=== PATIENT | female | born 1975 | race Caucasian/White ===

== ENCOUNTER 2016-11-16 17:34 | Inpatient (IN) | payer BC ==
[~2016-11-16] VITALS: Ht 172.7 cm; Wt 137.5 kg
[2016-11-16] MEDS ORDERED: OMNIPAQUE 350 MG/ML, 100ML BOTTLE ONE (18:07)
[2016-11-16] MEDS ORDERED: SODIUM CHLORIDE 0.9% 1,000 ML IV ONE (18:07)
[2016-11-16] MEDS ORDERED: ONDANSETRON 2MG/ML, 2ML ONE (18:15)
[2016-11-16] MEDS ORDERED: HYDROmorphone 1 MG/ML, 1ML ONE ×2 (18:15→20:30)
[2016-11-16 18:26] LABS: PATH.CAST-FLAG NOT PRESENT; SPERM-FLAG NOT PRESENT; SRC-FLAG NOT PRESENT; XTAL-FLAG NOT PRESENT; YLC-FLAG NOT PRESENT
[2016-11-16] MEDS ORDERED: SODIUM CHLORIDE 0.9% 1,000ML IVBOLUS ONE (18:30)
[2016-11-16] MEDS ORDERED: SODIUM CHLORIDE FLUSH 10ML SYR IVF ONE (18:30)
[2016-11-16] MEDS ORDERED: ONDANSETRON 2MG/ML, 2ML IVPush ONE (18:30)
[2016-11-16] MEDS ORDERED: HYDROmorphone 1 MG/ML, 1ML IVPush PRN (18:30)
[2016-11-16 18:34] LABS: HEMOGLOBIN 13.7 g/dL (11.7-16.4)
[2016-11-16 18:46] LABS: ASPARTATE AMINO TRANSFERASE 15 U/L (15-37); BLOOD UREA NITROGEN 7 mg/dL (7-18)
[2016-11-16] MEDS ORDERED: AMPICILLIN/SULBACTAM 3 GM in SODIUM CHLORIDE 0.9% 100 ML IV ONE (20:00)
[2016-11-16] MEDS ORDERED: METRONIDAZOLE PMX 500MG/100ML 100 ML IV ONE (20:00)
[2016-11-16] MEDS ORDERED: METH500T7 PO (20:22)
[2016-11-16] MEDS ORDERED: CIPR500T87 PO (20:25)
[2016-11-16] MEDS ORDERED: IBUP1TAB PO (20:25)
[2016-11-16] MEDS ORDERED: METR500T PO (20:25)
[2016-11-16] MEDS ORDERED: METH750T2 PO (20:25)
[2016-11-16] MEDS ORDERED: METRONIDAZOLE PMX 500MG/100ML 100 ML ONE (20:30)
[2016-11-16] MEDS: HEPARIN 5,000 UNITS/ML, 1ML SQ SCH (21:00)
[2016-11-16] MEDS: AMPICILLIN/SULBACTAM 3 GM in SODIUM CHLORIDE 0.9% 100 ML IV SCH (21:00)
[2016-11-16] MEDS ORDERED: ACETAMINOPHEN 325 MG TABLET PO PRN (21:00)
[2016-11-16] MEDS: METHOCARBAMOL 750 MG TABLET PO SCH (21:00)
[2016-11-16] MEDS: METRONIDAZOLE PMX 500MG/100ML 100 ML IV SCH (21:00)
[2016-11-16 21:18] VITALS: BP 135/81
[2016-11-16] MEDS: HYDROmorphone 2 MG/ML, 1ML IV PRN (21:50)
[2016-11-16] MEDS: SODIUM CHLORIDE 0.9% 1,000 ML IV SCH (23:00)
[2016-11-17 02:28] VITALS: BP 131/83
[2016-11-17] MEDS: AMPICILLIN/SULBACTAM 3 GM in SODIUM CHLORIDE 0.9% 100 ML IV SCH ×2 (03:45→10:20)
[2016-11-17] MEDS: HEPARIN 5,000 UNITS/ML, 1ML SQ SCH (05:00)
[2016-11-17] MEDS: METRONIDAZOLE PMX 500MG/100ML 100 ML IV SCH ×3 (05:55→20:47)
[2016-11-17 06:02] LABS: BLOOD UREA NITROGEN 5 mg/dL (7-18)
[2016-11-17 06:06] LABS: ASPARTATE AMINO TRANSFERASE 94 U/L (15-37)
[2016-11-17 06:09] LABS: HEMOGLOBIN 11.8 g/dL (11.7-16.4)
[2016-11-17] MEDS: HYDROmorphone 2 MG/ML, 1ML IV PRN ×3 (06:32→20:46)
[2016-11-17 08:01] VITALS: BP 103/69
[2016-11-17] MEDS: METHOCARBAMOL 750 MG TABLET PO SCH ×2 (09:20→20:45)
[2016-11-17] MEDS: ONDANSETRON 2MG/ML, 2ML IVP PRN (10:20)
[2016-11-17] MEDS: SODIUM CHLORIDE 0.9% 1,000 ML IV SCH (10:20)
[2016-11-17] MEDS ORDERED: PROCHLORPERAZINE 5 MG/ML, 2ML IV PRN (12:00)
[2016-11-17] MEDS: ENOXAPARIN 40 MG/0.4 ML SQ SCH (12:48)
[2016-11-17] MEDS: CEFTRIAXONE PMX 2GM/50ML 50 ML IV SCH (12:48)
[2016-11-17] MEDS: D5%-0.45NACL+KCL 20MEQ 1,000 ML IV SCH ×2 (14:39→20:49)
[2016-11-17] MEDS: IBUPROFEN 200 MG TABLET PO PRN (16:56)
[2016-11-17 19:49] VITALS: BP 126/78
[2016-11-18 01:18] VITALS: BP 120/72
[2016-11-18] MEDS: HYDROmorphone 2 MG/ML, 1ML IV PRN ×4 (04:15→21:01)
[2016-11-18] MEDS: D5%-0.45NACL+KCL 20MEQ 1,000 ML IV SCH ×2 (05:43→15:59)
[2016-11-18] MEDS: METRONIDAZOLE PMX 500MG/100ML 100 ML IV SCH ×3 (05:43→21:00)
[2016-11-18 05:54] LABS: HEMOGLOBIN 11.3 g/dL (11.7-16.4)
[2016-11-18 06:09] LABS: ASPARTATE AMINO TRANSFERASE 58 U/L (15-37); BLOOD UREA NITROGEN 4 mg/dL (7-18)
[2016-11-18 07:51] VITALS: BP 106/70
[2016-11-18] MEDS: METHOCARBAMOL 750 MG TABLET PO SCH ×2 (08:19→21:00)
[2016-11-18] MEDS: IBUPROFEN 200 MG TABLET PO PRN (10:26)
[2016-11-18] MEDS: ENOXAPARIN 40 MG/0.4 ML SQ SCH (12:20)
[2016-11-18] MEDS: CEFTRIAXONE PMX 2GM/50ML 50 ML IV SCH (12:20)
[2016-11-18 13:19] VITALS: BP 132/82
[2016-11-18 19:32] VITALS: BP 112/74
[2016-11-18] MEDS ORDERED: HYDROmorphone 1 MG/ML, 1ML ONE ×2 (20:52→20:53)
[2016-11-18] MEDS: ONDANSETRON 2MG/ML, 2ML IVP PRN (21:14)
[2016-11-19] MEDS ORDERED: HYDROmorphone 1 MG/ML, 1ML ONE (00:50)
[2016-11-19] MEDS: D5%-0.45NACL+KCL 20MEQ 1,000 ML IV SCH ×2 (00:51→11:43)
[2016-11-19] MEDS: HYDROmorphone 2 MG/ML, 1ML IV PRN ×2 (00:51→08:32)
[2016-11-19 01:40] VITALS: BP 130/77
[2016-11-19] MEDS: METRONIDAZOLE PMX 500MG/100ML 100 ML IV SCH (05:11)
[2016-11-19 07:13] VITALS: BP 106/69
[2016-11-19] MEDS: METHOCARBAMOL 750 MG TABLET PO SCH (08:32)
[2016-11-19] MEDS ORDERED: PANTOPRAZOLE 40 MG IV IVPush ONE (10:30)
[2016-11-19] MEDS ORDERED: MAALOX/HYOSCYAMINE/LIDOCAINE 45 ML BOTTLE PO ONE (10:30)
[2016-11-19] MEDS ORDERED: OMEP-110 PO (11:43)
[2016-11-19] MEDS ORDERED: CIPR500T87 PO (11:43)
[2016-11-19] MEDS ORDERED: METR500T PO (11:43)
== END 2016-11-19 12:13 | disposition home or self-care (01) | DRG 392 ==
LOC: ED 20:33 → EDIP 20:40 → 3NE 21:45
PROVIDERS: ADMIT Internal Medicine; ATTEND Internal Medicine
PROC: 0T9B70Z Drainage of Bladder with Drainage Device, Via Natural or Artificial Opening (ICD-10-PCS; principal; 2016-11-16)
DX: K57.30 Diverticulosis of large intestine without perforation or abscess without bleeding (principal); Z68.42 Body mass index [BMI] 45.0-49.9, adult; E87.1 Hypo-osmolality and hyponatremia; E44.1 Mild protein-calorie malnutrition; E66.01 Morbid (severe) obesity due to excess calories; K21.9 Gastro-esophageal reflux disease without esophagitis; D64.9 Anemia, unspecified; Z82.61 Family history of arthritis; Z86.19 Personal history of other infectious and parasitic diseases; Z80.8 Family history of malignant neoplasm of other organs or systems; Z90.49 Acquired absence of other specified parts of digestive tract; Z82.3 Family history of stroke; Z84.1 Family history of disorders of kidney and ureter; Z88.5 Allergy status to narcotic agent
CPT/HCPCS: 36415; 74177; 80053; 81001; 83690; 84484; 84703; 85025; 87086; 87106; 87324; 93005; 96361; 96365; 96375; J0295; J0696; J1170; J2405; Q9967; C9113; J3480; J7030

== ENCOUNTER 2016-12-04 10:08 | Emergency (ER) | payer BC ==
[~2016-12-04] VITALS: Ht 172.7 cm; Wt 133.0 kg
[~2016-12-04 10:08] MED LIST: CIPR500T87 PO; IBUP1TAB PO; METH500T7 PO; METH750T2 PO; METR500T PO; OMEP-110 PO
[2016-12-04 10:13] VITALS: BP 83/54
[2016-12-04] MEDS ORDERED: SODIUM CHLORIDE 0.9% 1,000 ML IV ONE (11:03)
[2016-12-04] MEDS ORDERED: ONDANSETRON 2MG/ML, 2ML IVPush ONE (11:30)
[2016-12-04] MEDS ORDERED: SODIUM CHLORIDE FLUSH 10ML SYR IVF ONE (11:30)
[2016-12-04] MEDS ORDERED: SODIUM CHLORIDE 0.9% 1,000ML IVBOLUS ONE (11:30)
[2016-12-04] MEDS ORDERED: HYDROmorphone 1 MG/ML, 1ML IVPush PRN (11:30)
[2016-12-04 11:31] LABS: HEMOGLOBIN 14.6 g/dL (11.7-16.4)
[2016-12-04] MEDS ORDERED: ONDANSETRON 2MG/ML, 2ML ONE (11:51)
[2016-12-04] MEDS ORDERED: HYDROmorphone 1 MG/ML, 1ML ONE (11:51)
[2016-12-04 11:57] LABS: BLOOD UREA NITROGEN 14 mg/dL (7-18)
[2016-12-04 12:06] LABS: ASPARTATE AMINO TRANSFERASE 17 U/L (15-37)
== END 2016-12-04 14:29 | disposition home or self-care (01) ==
LOC: ED 14:23
DX: K57.92 Diverticulitis of intestine, part unspecified, without perforation or abscess without bleeding (principal); M19.90 Unspecified osteoarthritis, unspecified site; M06.9 Rheumatoid arthritis, unspecified; Z88.6 Allergy status to analgesic agent; Z88.5 Allergy status to narcotic agent
CPT/HCPCS: 36415; 80053; 81003; 83605; 83690; 84703; 85025; 96361; 96374; 99285; J2405; J7030

== ENCOUNTER 2020-05-12 11:53 | Emergency (ER) | payer BC ==
[~2020-05-12] VITALS: Ht 172.7 cm; Wt 143.5 kg
[2020-05-12 14:24] LABS: BASOPHILS # (AUTO) 0.04 x10^3/uL (0-0.1); BASOPHILS % (AUTO) 1 % (0-1); EOSINOPHILS % (AUTO) 0 % (1-7); LYMPHOCYTES # (AUTO) 1.13 x10^3/uL (1-3.4); LYMPHOCYTES % (AUTO) 26 % (22-44); MD NO; MEAN CORPUSCULAR HEMOGLOBIN 28.8 pg (27.0-34.8); MEAN CORPUSCULAR HGB CONC 33.4 g/dL (32.4-35.8); MEAN CORPUSCULAR VOLUME 86.3 fL (80-100); MEAN PLATELET VOLUME 7.1 fL (7.4-10.4); MONOCYTES # (AUTO) 0.26 x10^3/uL (0.2-0.8); MONOCYTES % (AUTO) 6 % (2-9); NEUTROPHILS # (AUTO) 2.99 x10^3/uL (1.8-6.8); NEUTROPHILS % (AUTO) 68 % (42-75); PLATELET COUNT 213 x10^3/uL (130-400); RED BLOOD COUNT 4.87 x10^6/uL (3.82-5.3); RED CELL DISTRIBUTION WIDTH 14.6 % (9.6-15.2)
[2020-05-12 14:25] VITALS: BP 140/82
--- NOTE | 2020-05-12 14:26 | NUR ---
ALL RESULTS ARE BACK AT THIS TIME. CHART UP FOR RECHECK.
== END 2020-05-12 15:10 | disposition home or self-care (01) ==
LOC: ED 13:10
DX: N93.8 Other specified abnormal uterine and vaginal bleeding (principal); N95.9 Unspecified menopausal and perimenopausal disorder
CPT/HCPCS: 36415; 76830; 84703; 85025; 99284